=== PATIENT | female | born 1985 | race African-American/Black ===

== ENCOUNTER 2019-01-18 06:57 | Emergency (ER) | payer MEDICAID ==
[2019-01-18 07:02] VITALS: Wt 95.5 kg
[2019-01-18] MEDS ORDERED: ADVAIR HFA [SP]12 GM INH (07:19)
[2019-01-18] MEDS ORDERED: ALBUTEROL SULF8.5 GM INH (07:19)
[2019-01-18] MEDS ORDERED: MEDROL DOSE PACK4 MG PO (07:19)
[2019-01-18 07:52] VITALS: BP 120/78
== END 2019-01-18 07:53 | disposition home or self-care (01) ==
LOC: D.ER 06:57
DX: J45.909 Unspecified asthma, uncomplicated (principal)

== ENCOUNTER 2019-06-02 09:26 | Emergency (ER) | payer MEDICAID ==
[~2019-06-02] VITALS: Ht 162.6 cm; Wt 107.3 kg
[~2019-06-02 09:26] MED LIST: ADVAIR HFA [SP]12 GM INH; ALBUTEROL SULF8.5 GM INH; MEDROL DOSE PACK4 MG PO
[2019-06-02 09:28] VITALS: Ht 162.6 cm; Wt 107.3 kg
[2019-06-02 10:13] LABS: CALC OSMOLALITY 284 mosm/kg (275-300); CALCIUM 8.9 mg/dL (8.5-10.1); CHLORIDE - SERUM 108 mmol/L (98-107); POTASSIUM - SERUM 3.4 mmol/L (3.5-5.1); SODIUM 142 mmol/L (136-145); UREA NITROGEN 14 mg/dL (7-18); eGFR NON AFRICAN AMERICAN 67 mL/min (90-120)
[2019-06-02 10:15] LABS: GLUCOSE 118 mg/dL (74-106)
[2019-06-02 10:26] LABS: BASOPHILS 0.3 % (0-2); EOSINOPHILS 5.3 % (0-7); HEMATOCRIT 39.2 % (36.0-48.0); HEMOGLOBIN 12.9 g/dL (12-16); IMMATURE GRANULOCYTES 0.3 % (0-5); LYMPHOCYTES 44.9 % (15-50); MCHC 32.9 g/dL (31.0-37.0); MCV 85.2 fL (80.0-100.0); MEAN PLATELET VOLUME 9.9 fL (7.4-10.4); MONOCYTES 8.7 % (2-11); NEUTROPHILS 40.5 % (40-80); PLATELET COUNT 353 10x3/uL (130-400); RDW 14.5 % (11.5-14.5); WBC 7.9 10x3/uL (4.8-10.8)
[2019-06-02 10:40] LABS: ALBUMIN 3.5 g/dL (3.4-5.0); ALKALINE PHOSPHATASE 89 U/L (30-120); ALT (SGPT) 63 U/L (10-68); BILIRUBIN - TOTAL 0.98 mg/dL (0.2-1.3); CKMB 6.7 U/L (0.0-3.6); PRO BNP 11 pg/mL (0-125); PROTEIN - SERUM 7.8 g/dL (6.4-8.2)
[2019-06-02 10:41] LABS: CREATINE KINASE 1545 UL (21-215); TROPONIN-I < 0.017 ng/mL (0.000-0.060)
[2019-06-02 12:03] LABS: APTT 23.9 SECONDS (22.8-39.4); INR 1.01 (0.85-1.17); PROTIME 13.3 SECONDS (11.6-15.0)
[2019-06-02] MEDS ORDERED: STERAPRED DS 1010 MG PO (12:27)
[2019-06-02 12:38] VITALS: BP 162/93
== END 2019-06-02 12:51 | disposition home or self-care (01) ==
LOC: D.ER 09:26
PROVIDERS: Family Medicine
DX: J45.901 Unspecified asthma with (acute) exacerbation (principal); M62.82 Rhabdomyolysis

== ENCOUNTER 2020-08-13 06:34 | Emergency (ER) | payer OTHER ==
[~2020-08-13] VITALS: Ht 162.6 cm; Wt 108.2 kg
[~2020-08-13 06:34] MED LIST changes: +PROAIR HFA8.5 G1 INH; +STERAPRED DS 1010 MG PO
[2020-08-13 06:39] VITALS: Ht 162.6 cm; Wt 108.2 kg
[2020-08-13] MEDS ORDERED: PROAIR HFA8.5 G1 INH ×2 (06:41→06:58)
[2020-08-13] MEDS ORDERED: FLOVENT HFA 11012 GM INH (06:58)
[2020-08-13] MEDS ORDERED: STERAPRED DS 1210 MG PO (06:58)
[2020-08-13] MEDS ORDERED: IPRAT-ALBUT 0.5-3 ML UPD (06:58)
[2020-08-13 07:58] VITALS: BP 115/68
== END 2020-08-13 07:59 | disposition home or self-care (01) ==
LOC: D.ER 06:34
DX: J45.901 Unspecified asthma with (acute) exacerbation (principal); R06.02 Shortness of breath

== ENCOUNTER 2020-09-17 13:56 | Emergency (ER) | payer OTHER ==
[~2020-09-17] VITALS: Ht 162.6 cm; Wt 114.5 kg
[~2020-09-17 13:56] MED LIST changes: +FLOVENT HFA 11012 GM INH; +IPRAT-ALBUT 0.5-3 ML UPD; +STERAPRED DS 1210 MG PO
[2020-09-17 14:05] VITALS: Ht 162.6 cm; Wt 114.5 kg
[2020-09-17] MEDS ORDERED: PREDNISONE20 MG PO (14:50)
[2020-09-17 16:29] VITALS: BP 155/80
== END 2020-09-17 16:04 | disposition home or self-care (01) ==
LOC: D.ER 13:56
DX: J45.909 Unspecified asthma, uncomplicated (principal); T59.91XA Toxic effect of unspecified gases, fumes and vapors, accidental (unintentional), initial encounter